=== PATIENT | female | born 1995 | race Caucasian/White ===

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

== ENCOUNTER 2018-07-28 21:35 | Emergency (ER) | payer OTHER ==
[~2018-07-28] VITALS: Ht 154.9 cm; Wt 62.0 kg
[~2018-07-28 21:35] MED LIST changes: +MOTRIN800 MG PO
[2018-07-28 22:02] LABS: IMMATURE GRANULOCYTES 0.4 % (0.0-5.0); MEAN CELL VOLUME 85.9 fL CALC (80.0-100.0); MEAN CORPUSCULAR HGB 26.7 pG CALC (26.0-32.0); NEUT# 4.2 thou/uL (2.00-7.15); RED BLOOD COUNT 3.9 mill/uL (4.20-5.60); RED CELL DISTRI WIDTH 13.5 % (11.5-15.5)
[2018-07-28 22:08] LABS: HEMATOCRIT 33.5 % (37.0-47.0); HEMOGLOBIN 10.4 g/dl (12.0-16.0)
[2018-07-28 22:15] LABS: ALBUMIN 4.5 g/dL (3.2-5.0); ALKALINE PHOSPHATASE 107 u/l (38-126); ANION GAP 14 (6-22 (CALC)); BUN 13 mg/dL (7-17); BUN/CREATININE RATIO 23 (12-20 (CALC)); CARBON DIOXIDE 25 mmol/l (22-30); CHLORIDE 105 mmol/l (95-108); CREATININE 0.6 mg/dL (0.5-1.0); GFR > 60 ML/MIN (>=60 (CALC)); GFR FOR AFR.AMER. > 60 ML/MIN (>=60 (CALC)); SGOT/AST 43 u/l (14-36); SODIUM 140 mmol/l (137-146); TOTAL PROTEIN 7.6 g/dL (6.3-8.2)
[2018-07-28 22:16] LABS: BILIRUBIN, TOTAL 0.2 mg/dL (0.0-1.4)
[2018-07-28 22:54] LABS: TSH, 3RD GENERATION 3.15 uIU/mL (0.47 - 4.68)
[2018-07-28 23:53] LABS: URINE BILIRUBIN - DIPSTICK NEGATIVE (NEGATIVE); URINE BLOOD DIPSTICK TRACE-INTACT (NEGATIVE); URINE COLOR YELLOW; URINE GLUCOSE - DIPSTICK NEGATIVE (NEGATIVE); URINE KETONE NEGATIVE (NEGATIVE); URINE LEUK ESTERASE NEGATIVE (NEGATIVE); URINE NITRITE - DIPSTICK NEGATIVE (Negative); URINE PH 6.5 (4.5-8.0); URINE PROTEIN - DIPSTICK NEGATIVE (NEG-TRACE); URINE SPECIFIC GRAVITY 1.025; URINE UROBILINOGEN - DIPSTICK 0.2 E.U./dL (0.2)
[2018-07-29 00:15] VITALS: BP 122/70
== END 2018-07-29 00:36 | disposition home or self-care (01) ==
LOC: ED 21:35
PROVIDERS: Family Medicine
DX: R06.00 Dyspnea, unspecified (principal); R00.2 Palpitations; R06.02 Shortness of breath

== ENCOUNTER 2021-12-07 21:55 | Emergency (ER) | payer OTHER ==
[2021-12-07 22:09] VITALS: BP 122/90
== END 2021-12-07 22:09 | disposition left against medical advice (07) | DRG 951 ==
LOC: ED 21:55 → LWOBS 22:09
DX: Z53.21 Procedure and treatment not carried out due to patient leaving prior to being seen by health care provider (principal)